=== PATIENT | female | born 1950 | race Caucasian/White ===

== ENCOUNTER 2020-09-01 11:37 | Outpatient (REF) | payer MEDICARE, SELFPAY ==
--- NOTE | 2020-09-01 11:42 | MM_ITS ---
EXAMINATION: MM SCREENING DIGITAL BREAST TOMOSYNTHESIS, BILATERAL CLINICAL INFORMATION: Screening. Asymptomatic. The lifetime risk of breast cancer based on the Tyrer-Cuzick Model is 6.6%. COMPARISON: Mammography: June 29, 2019 and studies dating back to October 09, 2011 TECHNIQUE: Digital breast tomosynthesis is performed in both the craniocaudal and mediolateral oblique views along with computer-aided detection (CAD). Synthesized 2D images are generated from the tomosynthesis. FINDINGS: The breasts are heterogeneously dense, which may obscure small masses (ACR BI-RADS breast composition Category c). There are no significant masses, abnormal calcifications, or other abnormalities. MM/MM tomosynthesis screening BI IMPRESSION: There are no significant changes from prior study. ASSESSMENT: BI-RADS 1: Negative RECOMMENDATION: Routine annual mammography screening. This patient's information was entered into a reminder system with a target due date for their next mammogram.
== END 2020-09-01 11:38 | disposition home or self-care (01) ==
LOC: HO.MAMMO 11:37
PROVIDERS: PCP Internal Medicine; Visit Provider Internal Medicine
DX: Z12.31 Encounter for screening mammogram for malignant neoplasm of breast (principal)
CPT/HCPCS: 77063; 77067

== ENCOUNTER 2021-09-27 09:44 | Outpatient (REF) | payer MEDICARE, SELFPAY ==
--- NOTE | ~2021-09-27 | MM_ITS ---
EXAMINATION: MM SCREENING DIGITAL BREAST TOMOSYNTHESIS, BILATERAL CLINICAL INFORMATION: Screening. Asymptomatic. The lifetime risk of breast cancer based on the Tyrer-Cuzick Model is 6%. COMPARISON: Mammography: 09/01/2020, 06/29/2019, 06/19/2018 TECHNIQUE: Digital breast tomosynthesis is performed in both the craniocaudal and mediolateral oblique views along with computer-aided detection (CAD). Synthesized 2D images are generated from the tomosynthesis. FINDINGS: There are scattered areas of fibroglandular density (ACR BI-RADS breast composition Category b). There are no significant masses, abnormal calcifications, or other abnormalities. There are scattered bilateral stable asymmetries. No developing density or interval mass or architectural abnormality. Skin contours are smooth. No significant changes. MM/MM tomosynthesis screening BI IMPRESSION: No mammographic evidence of malignancy. ASSESSMENT: BI-RADS 2: Benign RECOMMENDATION: Routine annual mammography screening. This patient's information was entered into a reminder system with a target due date for their next mammogram.
== END 2021-09-27 09:45 | disposition home or self-care (01) ==
LOC: HO.MAMMO 09:44
PROVIDERS: PCP Internal Medicine; Visit Provider Internal Medicine
DX: Z12.31 Encounter for screening mammogram for malignant neoplasm of breast (principal)
CPT/HCPCS: 77063; 77067

== ENCOUNTER 2022-10-04 09:57 | Outpatient (REF) | payer MEDICARE, SELFPAY ==
--- NOTE | ~2022-10-04 | MM_ITS ---
EXAMINATION: MM SCREENING DIGITAL BREAST TOMOSYNTHESIS, BILATERAL CLINICAL INFORMATION: Screening. Asymptomatic. The lifetime risk of breast cancer based on the Tyrer-Cuzick Model is 5.0%. COMPARISON: Mammography: September 27, 2021 and studies dating back to March 02, 2016 TECHNIQUE: Digital breast tomosynthesis is performed in both the craniocaudal and mediolateral oblique views along with computer-aided detection (CAD). Synthesized 2D images are generated from the tomosynthesis. FINDINGS: There are scattered areas of fibroglandular density (ACR BI-RADS breast composition Category b). There are no significant masses, abnormal calcifications, or other abnormalities. MM/MM tomosynthesis screening BI IMPRESSION: No significant changes ASSESSMENT: BI-RADS 1: Negative RECOMMENDATION: Routine annual mammography screening. This patient's information was entered into a reminder system with a target due date for their next mammogram.
== END 2022-10-04 09:58 | disposition home or self-care (01) ==
LOC: HO.MAMMO 09:57
PROVIDERS: PCP Internal Medicine; Visit Provider Internal Medicine
DX: Z12.31 Encounter for screening mammogram for malignant neoplasm of breast (principal)
CPT/HCPCS: 77063; 77067

== ENCOUNTER 2024-01-09 08:53 | Outpatient (REF) | payer MEDICARE, SELFPAY ==
--- NOTE | ~2024-01-09 | MM_ITS ---
EXAMINATION: BONE DENSITOMETRY CLINICAL INDICATION: Post menopausal. Estrogen deficiency. COMPARISON: Previous BD dated 10/28/2018 and baseline BD dated 12/25/2012. TECHNIQUE: Using a Simpleview DXA System (software version: 13.1) manufactured by [employer], dual-energy x-ray absorptiometry was performed of the lumbar spine and left hip. The images are of good technical quality. Summary results are attached. FINDINGS: AP SPINE L1-L3 (excluding L4): The data of L1-L4 has been changed to exclude the L4 vertebral body, because degenerative sclerosis at this level may cause overestimation of lumbar spine density. Current: BMD 1.382 g/cm2, Z-score 2.4, T-score 1.8, normal, 8.6% increase from previous, 6.1% increase from baseline (<5% change is not significant). Prior: BMD 1.272 g/cm2. Baseline: BMD 1.302 g/cm2. LEFT FEMUR, NECK: Current: BMD 0.970 g/cm2, Z-score 0.6, T-score -0.5, normal. Prior: BMD 0.931 g/cm2. Baseline: BMD 0.979 g/cm2. LEFT FEMUR, TOTAL: Current: BMD 1.011 g/cm2, Z-score 0.8, T-score 0.0, normal, 1.3% decrease from previous, 1.6% decrease from baseline (<5% change is not significant). Prior: BMD 1.024 g/cm2. Baseline: BMD 1.027 g/cm2. IDENTIFIED RISK FACTORS: History of adult fracture. Thiazide. Menopause. Hysterectomy. Bilateral oophorectomy. HISTORY OF FRACTURE: Forearm. MEDICATIONS: Calcium supplement and/or multivitamin. MM/XR DEXA axial skeleton IMPRESSION: 1. DIAGNOSIS: Normal bone density based on the lowest T-score value of -0.5 in the femoral neck applying World Health Organization criteria. 2. 10-YEAR FRACTURE RISK PREDICTION, FRAX: According to the guidelines, FRAX calculation should only be performed on patients in the osteopenia bone density category.?Therefore, FRAX was not performed on this patient.? 3. Treatment Recommendations: NOF guidelines recommend consideration for treatment in postmenopausal women and men age 50 and older presenting with the following: -A hip or vertebral (clinical or morphometric) fracture. -T-score less than or equal to -2.5 at the femoral neck or spine after appropriate evaluation to exclude secondary causes. -Low bone mass at the hip or spine and a 10-year fracture probability by FRAX of greater than or equal to 3% for hip fracture or greater than or equal to 20% for major osteoporotic fracture based on the [place] adapted WHO algorithm. 4. Other Recommendations: All treatment decisions require clinical judgment and consideration of individual patient factors, including patient preferences, comorbidities, previous drug use, risk factors not captured in the FRAX model (e.g. frailty, falls, vitamin D deficiency, increased bone turnover, interval significant decline in bone density) and possible under or overestimation of fracture risk by FRAX. FUTURE SCAN RECOMMENDATION: People with diagnosed cases of osteoporosis or at high risk for fracture should have regular bone mineral density tests. For patients eligible for Medicare, routine testing is allowed once every 2 years. The testing frequency can be increased to one year for patients who have rapidly progressing disease, those who are receiving or discontinuing medical therapy to restore bone mass, or have additional risk factors.
== END 2024-01-09 08:54 | disposition home or self-care (01) ==
LOC: HO.MAMMO 08:53
PROVIDERS: PCP Internal Medicine; Visit Provider Internal Medicine
DX: Z12.31 Encounter for screening mammogram for malignant neoplasm of breast (principal); Z13.820 Encounter for screening for osteoporosis; Z78.0 Asymptomatic menopausal state
CPT/HCPCS: 77063; 77067; 77080

== ENCOUNTER → 2024-01-09 09:15 | Outpatient (BNV) | payer MEDICARE, SELFPAY | PROVIDERS: PCP Internal Medicine; Visit Provider Radiology Diagnostic Radiology | DX: Z12.31 Encounter for screening mammogram for malignant neoplasm of breast (principal) | CPT/HCPCS: 77063; 77067 ==

== ENCOUNTER 2025-02-17 08:59 | Outpatient (REF) | payer MEDICARE, SELFPAY ==
--- OUTSIDE RECORDS SUMMARY | 2025-02-17 09:23 | XMS_ITS | Patient Health Record ---
Author Organization [facility] Address [address] [place] [address] Care Team Providers [employer] Name Role Phone Jeff Allen MD Primary Care Provider Carmen Browning Unavailable [phone] Allergies No Known Allergies Reason For Referral No Information Medications Medication SIG (Take, Route, Frequency, Duration) Notes Start Date End Date Status Simvastatin 40 MG 1 Orally daily 08/07/2012 Active Lisinopril 30 MG 1 tablet Orally daily 08/07/2012 Active Tylenol Arthritis Pain PRN Active hydroCHLOROthiazide 12.5 MG 1 capsule Or ally Once a day Active One Daily Adults 50+ - Orally Active Social History Tobacco Use: Social History Observation Description Date Details (start date - stop date) Never Smoker NA - NA AUDIT-C (Standard) Question Answer Notes Did you have a drink contain ing alcohol in the past year? Yes How often did you have a dri nk containing alcohol in the past year? 2 to 3 times a week (3 points) How many drinks did you have on a typical day when you were drinking in the past year? 1 or 2 drinks (0 point) How often did you have six o r more drinks on one occasion in the past year? Never (0 point) Points 3 Interpretation Positive Tobacco Control (Standard) Question Answer Notes Tobacco use: Nonsmoker Problems Problem Type SNOMED Code ICD Code Onset Dates Problem Status W/U Status Risk Notes Problem Malignant tumor of ovary (872784577) Malignant neoplasm of unspecified ovary (C56.9) Active confirmed Problem History of malignant neoplasm of ovary (607210226) Personal history of malignant neoplasm of ovary (Z85.43) Active confirmed Problem Malignant neoplasm of ovary (532736547) Malignant neoplasm of ovary (183.0) Active confirmed Major Problem Hyperlipidemia (25601087) Other and unspecified hyperlipidemia (272.4) Active confirmed Major Problem Benign essential hypertension (6340474) Essential hypertension, benign (401.1) Active confirmed Major Problem Menopausal symptom (68601865) Symptomatic menopausal or female climacteric states (627.2) Active confirmed Major Problem Osteoarthritis (890487259) Osteoarthrosis, unspecified whether generalized or localized, unspecified site (715.90) Active confirmed Major Problem Gynecological examination normal (685757995524350) Routine gynecological examination (V72.31) Active confirmed Major Problem Screening for malignant neoplasm of colon (137110783) Special screening for malignant neoplasms, colon (V76.51) Active confirmed Major Vital Signs Heart Rate ` /min 02/03/2025 Temperature 97.7 degrees Fahrenheit 02/03/2025 Blood pressure diastolic 72 mm Hg 02/03/2025 Height 66 in 02/03/2025 Blood pressure systolic 142 mm Hg 02/03/2025 Weight 219 lbs 02/03/2025 BMI 35.34 kg/m2 02/03/2025 Encounters Encounter Location Date Provider Diagnosis [address] [place] [address] 02/03/2025 Carmen Snowden Encounter for gynecological examination (general) (routine) without abnormal findings Z01.419 ; Encounter for screening mammogram for malignant neoplasm of breast Z12.31 and Personal history of malignant neoplasm of ovary Z85.43 Assessments Encounter Date Diagnosis (ICD Code) Assessment Notes Treatment Notes Treatment Clinical Notes Section Notes 02/03/2025 Encounter for gynecological examination (general) (routine) without abnormal findings (ICD-10 - Z01.419) NO MORE PAP TESTS. 02/03/2025 Encounter for screening mammogram for malignant neoplasm of breast (ICD-10 - Z12.31) REGULAR MAMMOGRAMS AND SBE'S WERE RECOMMENDED. 02/03/2025 Personal history of malignant neoplasm of ovary (ICD-10 - Z85.43) PAT WAS REASSURED OF NORMAL EXAM TODAY. Plan Of Treatment Pending Test Test Name Order Date MAMMOGRAM, SCREENING 08/26/2017 MAMMOGRAM, SCREENING 01/19/2022 MAMMOGRAM, SCREENING 01/23/2023 MAMMOGRAM, SCREENING 01/29/2024 MAMMOGRAM, SCREENING 02/03/2025 MAMMOGRAM, SCREENING 11/16/2014 CA 125 11/16/2014 CANC ANT-125 12/04/2019 BONE DENSITY 08/26/2017 BONE DENSITY 01/19/2022 BONE DENSITY 01/23/2023 MM Digital Mammo Screening 01/29/2024 MM Digital Mammo Screening 02/03/2025 MM Digital Mammo Screening 08/26/2017 MM Digital Mammo Screening 01/23/2023 MM Digital Mammo Screening 01/04/2021 MM Digital Mammo Screening 01/19/2022 Next Appt Details Provider Name:Carmen Marquez aartiangela, 02/09/2026 09:00:00 AM, [address], [address], [place], [address], Insurance Providers Payer Name Payer Address Payer Phone Subscriber Number Group Number Insured Name Patient Relationship to Insured Coverage Start Date Coverage End Date MEDICARE [address] [place] [id number] [phone] [id number] CARMEN MORFIN Self - patient is the insured MEDEX [address] [place] [address] [id number] CARMEN MORFIN Self - patient is the insured Medical (General) History Medical History History ICD Code Unspecified osteoarthritis, unspecified site M19.90 Malignant neoplasm of unspecified ovary C56.9 Essential (primary) hypertension I10 Other hyperlipidemia E78.4 Menopausal and female climacteric states N95.1 Archilies Tendonitis Inconclusive mammogram R92.2 Mammographic fibroglandular density, jf ateral breasts R92.323 Mammographic heterogeneous density, bila teral breasts R92.333 Surgical History Surgery Date(Month/Year) Colonoscopy [facility]/BSO Right Meniscus Surgery 10/2021 Cyst Removal on Neck Hospitalization History Reason Date(Month/Year) [facility]/BSO 3 Vaginal Deliveries
== END 2025-02-17 09:00 | disposition home or self-care (01) ==
LOC: HO.MAMMO 08:59
PROVIDERS: PCP Internal Medicine; Visit Provider Internal Medicine
DX: Z12.31 Encounter for screening mammogram for malignant neoplasm of breast (principal)
CPT/HCPCS: 77063; 77067

== ENCOUNTER → 2025-02-17 09:00 | Outpatient (BNV) | payer MEDICARE, SELFPAY | PROVIDERS: PCP Internal Medicine; Visit Provider Internal Medicine | DX: Z12.31 Encounter for screening mammogram for malignant neoplasm of breast (principal) | CPT/HCPCS: 77063; 77067 ==